=== PATIENT | female | born 1950 | race Caucasian/White ===

== ENCOUNTER 2016-10-07 14:04 | Observation (INO) ==
[2016-10-07] MEDS ORDERED: Ondansetron 4 MG/2 ML VIAL IVP ONE (15:00)
[2016-10-07] MEDS ORDERED: 0.9 % Sodium Chloride 1,000 ML IVC ONE (15:00)
--- NOTE | 2016-10-07 15:05 | Emergency Department Note ---
Disposition Clinical Impression: Lightheadedness, Loss of balance, Weakness, Pre-syncope Nausea and vomiting Qualifiers: Vomiting type: unspecified Vomiting Intractability: non-intractable Qualified Code(s): R11.2 - Nausea with vomiting, unspecified Disposition: Admitted As Inpatient Condition: Good Time of Disposition: 15:48 Weakness HPI - General Chief complaint: ED Weakness Stated complaint: Weakness/Blurred Vision Time Seen by Provider: 10/07/16 14:28 Source: patient Limitations: no limitations Nursing Notes Reviewed: Yes Vital Signs Reviewed: Yes - History of Present Illness HPI Narrative: Patient is a 66-year-old female with a history of hyperlipidemia and no prior cardiac history who complains of weakness, lightheadedness, nausea, and blurry vision after she sat down to eat lunch 2 hours ago. Patient states symptoms came on suddenly\. Symptoms persisted and so the patient was brought to the ED for evaluation after she was told by her PCP to come to the ED. Patient vomited while in her room here in the ED. Contents was patient's lunch consisted of soup. Patient states the only thing out of the ordinary that she noticed was increased urinary urgency and production of very little urine over the past 3 days. Patient denies tobacco, alcohol, illicit drug use. Pain Scale: 0 - Related Data Home Medications Medication Instructions Recorded Confirmed Acetaminophen [Tylenol] 500 mg PO Q6HR PRN 10/07/16 10/07/16 Krill/[place]-3/Dha/Epa/Lipids 1 each PO DAILY 10/07/16 10/07/16 [Krill Oil 300 mg Softgel] LORazepam [Ativan] 0.5 mg PO BID PRN 10/07/16 10/07/16 Multivitamin [Multi-Day Vitamins] 1 each PO DAILY 10/07/16 10/07/16 Multivits Min/Iron/FA/Herb#186 1 each PO DAILY 10/07/16 10/07/16 [Hair, Skin & Nails Caplet] Allergies Allergy/AdvReac Type Severity Reaction Status Date / Time levofloxacin [From Levaquin] AdvReac Hallucinati Verified 10/07/16 14:10 ng All systems ED: reviewed and negative except as stated. Review of Systems: As Per HPI Constitutional: Reports: weakness. Denies: fever Eyes: Reports: vision change ENT ED: Denies: congestion Cardiovascular: Denies: chest pain, palpitations Respiratory: Denies: cough, dyspnea, wheezes Gastrointestinal: Reports: nausea, vomiting. Denies: abdominal pain, diarrhea, hematemesis, melena, hematochezia Genitourinary: Reports: urgency, frequency. Denies: dysuria, hematuria, discharge Musculoskeletal: Denies: back pain, neck pain Integumentary: Denies: rash Neurological: Reports: weakness, abnormal gait. Denies: headache, numbness, paresthesias Psychiatric: Denies: anxiety Endocrine: Denies: fatigue Past Medical History - Past Medical History Attestation: Yes The following information was validated with the patient. Source: patient Medical history: Reports: hyperlipidemia Psychiatric history: Reports: no psych history [employer] history: Reports: no [employer] history - Social History Smoking Status: Never smoker Smokeless Tobacco Status: No Alcohol use: Reports: none Drug use: Reports: none Physical Exam - General Limitations: no limitations General appearance: alert - Head Head exam: atraumatic, normocephalic, normal inspection - Eye Eye exam: Present: normal appearance, PERRL, EOMI - ENT ENT exam: normal exam, normal oropharynx, mucous membranes moist - Neck Neck exam: Present: normal inspection, full ROM, trachea midline - Chest Chest inspection: Present: normal inspection, symmetric chest wall rise - Respiratory Respiratory exam: Present: normal lung sounds bilaterally - Abdominal Exam Abdominal exam: Present: soft, Non-Tender. Absent: tenderness, distention, guarding, rebound, rigidity - Extremities Exam Extremities exam: Present: normal inspection, full ROM, normal capillary refill. Absent: tenderness, pedal edema - Expanded Lower Extremity Exam Hip/Pelvis exam: Present: normal inspection, full ROM Upper leg exam: Present: normal inspection, full ROM Knee exam: Present: normal inspection, full ROM Lower leg exam: Present: normal inspection, full ROM Ankle exam: Present: normal inspection, full ROM Foot/toe exam: Present: normal inspection, full ROM Neurovascular/Tendon exam: Absent: motor deficit, sensory deficit, tendon deficit - Back Exam Back exam: Present: normal inspection, full ROM. Absent: tenderness, CVA tenderness (R), CVA tenderness (L) - Neurological Exam Neurological exam: Present: alert, oriented X3, CN II-XII intact, normal gait ( Patient having difficulty maintaining balance and leans to the left. She is able to stand up on her own without issue). Absent: motor sensory deficit, reflexes normal - Psychiatric Psychiatric exam: Present: normal affect, normal mood - Skin Skin exam: Present: warm, dry, intact, normal color Course - Reevaluation(s) Reevaluation #1: Patient seen and examined at bedside. Patient doing well patient complains of nausea. Zofran ordered IV, 1 L normal saline ordered urinalysis ordered and EKG ordered Time: 15:10 Reevaluation #2: Patient was reevaluated and doing well. Patient initially refused Zofran for nausea but will take it now. Patient will be able to provide urine for us now Time: 16:05 Reevaluation #3: Patient's labs and EKG showed no abnormalities. Plan is to admit patient for presyncope and observation. Patient understands and agrees to treatment and plan. Vital Signs Temperature 97.3 F L 10/07/16 14:07 Pulse Rate 71 10/07/16 14:07 Respiratory Rate 20 10/07/16 14:07 Blood Pressure 127/85 10/07/16 14:07 O2 Sat by Pulse Oximetry 99 10/07/16 14:07 Temperature 98.1 F 10/07/16 19:26 Pulse Rate 84 10/07/16 19:26 Respiratory Rate 14 10/07/16 19:26 Blood Pressure 137/85 10/07/16 19:26 O2 Sat by Pulse Oximetry 95 10/07/16 19:26 Oxygen Delivery Oxygen Delivery Room Air Weakness - [facility] Narrative Medical decision making narrative: The patient comes in with concern for presyncope, secondary to possible dysrhythmia. Patient has no previous cardiac history. No signs of vertigo. No signs or symptoms pointing to an central cause of vertigo. Neurologic exam was negative. No dysdidactokinesis. No nystagmus, provoked her unprovoked. Patient is chest pain-free, abdominal pain-free, and has no focal neurological deficits. Patient was given recommendation for admittance secondary to acute onset of symptoms leading to a presyncopal episode which require at least 24 hours observation. Patient accepts this is in to admit Patient was accepted for admission by Dr. Mitchell the hospitalist. - Lab Data Result diagrams: 10/07/16 15:21 10/07/16 15:21 Lab Results 08/10/07/16 10/07/16 Range/Units 15:19 15:21 15:21 WBC 8.0 (4.3-11.1) K/mcL RBC 4.82 (3.82-4.97) M/mcL Hgb 13.9 (11.5-15.4) g/dL Hct 42.4 (35.3-44.9) % MCV 88.0 (83.0-100.0) fL MCH 28.8 (28.0-33.3) pg MCHC 32.8 (31.6-35.5) g/dL RDW 12.7 (11.5-14.5) % Plt Count 258 (140-400) K/mcL MPV 9.8 (9.4-12.4) fL Immature Gran % 0.4 (0-4) % Seg Neutrophils % 78.7 % Lymphocytes % 14.8 % Monocytes % 5.0 % Eosinophils % 0.9 % Basophils % 0.2 % Neutrophils # 6.3 (1.6-8.9) K/mcL Lymphocytes # 1.2 (0.6-4.6) K/mcL Monocytes # 0.4 (0.0-1.3) K/mcL Eosinophils # 0.1 (0.0-0.6) K/mcL Basophils # 0.0 (0.0-0.2) K/mcL Sodium 143 (136-145) mEq/L Potassium 4.0 (3.5-4.5) mEq/L Chloride 104 (98-109) mEq/L Carbon Dioxide 29 (19-29) mEq/L BUN 15 (7-20) mg/dL Creatinine 0.72 (0.57-1.11) mg/dL Est GFR ( Amer) > 60 (> 60) Est GFR (Non-Af Amer) > 60 (> 60) BUN/Creatinine Ratio 21 (6-26) Glucose 108 H (70-99) mg/dL POC Glucose 106 H (58-89) Calculated Osmolality 297 (280-300) Calcium 9.9 (8.6-10.8) mg/dL Troponin I (0-0.03) ng/mL Urine Color (Yellow) Urine Clarity (Clear) Urine pH (5.0-8.0) pH Units Ur Specific [place] (1.010-1.025) Urine Protein (Neg-Trace) mg/dL Urine Glucose (UA) (Normal) mg/dL Urine Ketones (Negative) mg/dL Urine Blood (Negative) Urine Nitrite (Negative) Urine Bilirubin (Negative) Urine Urobilinogen (Normal) mg/dL Ur Leukocyte Esterase (Negative) Urine Microscopic RBC (0-3) per hpf Urine Microscopic WBC (0-3) per hpf Ur Squamous Epith Cells (None-Few) per lpf Urine Bacteria (None-Few) per hpf Hyaline Casts (None-Few) per lpf Ur Culture Indicated? (NO) 10/07/16 10/07/16 10/07/16 Range/Units 15:21 16:45 19:09 WBC (4.3-11.1) K/mcL RBC (3.82-4.97) M/mcL Hgb (11.5-15.4) g/dL Hct (35.3-44.9) % MCV (83.0-100.0) fL MCH (28.0-33.3) pg MCHC (31.6-35.5) g/dL RDW (11.5-14.5) % Plt Count (140-400) K/mcL MPV (9.4-12.4) fL Immature Gran % (0-4) % Seg Neutrophils % % Lymphocytes % % Monocytes % % Eosinophils % % Basophils % % Neutrophils # (1.6-8.9) K/mcL Lymphocytes # (0.6-4.6) K/mcL Monocytes # (0.0-1.3) K/mcL Eosinophils # (0.0-0.6) K/mcL Basophils # (0.0-0.2) K/mcL Sodium (136-145) mEq/L Potassium (3.5-4.5) mEq/L Chloride (98-109) mEq/L Carbon Dioxide (19-29) mEq/L BUN (7-20) mg/dL Creatinine (0.57-1.11) mg/dL Est GFR ( Amer) (> 60) Est GFR (Non-Af Amer) (> 60) BUN/Creatinine Ratio (6-26) Glucose (70-99) mg/dL POC Glucose (58-89) Calculated Osmolality (280-300) Calcium (8.6-10.8) mg/dL Troponin I 0.01 0.01 (0-0.03) ng/mL Urine Color Yellow (Yellow) Urine Clarity Clear (Clear) Urine pH 7.0 (5.0-8.0) pH Units Ur Specific [place] 1.018 (1.010-1.025) Urine Protein Negative (Neg-Trace) mg/dL Urine Glucose (UA) Normal (Normal) mg/dL Urine Ketones Negative (Negative) mg/dL Urine Blood Negative (Negative) Urine Nitrite Negative (Negative) Urine Bilirubin Negative (Negative) Urine Urobilinogen Normal (Normal) mg/dL Ur Leukocyte Esterase Small H (Negative) Urine Microscopic RBC 0-3 (0-3) per hpf Urine Microscopic WBC 3-5 H (0-3) per hpf Ur Squamous Epith Cells Many H (None-Few) per lpf Urine Bacteria None Seen (None-Few) per hpf Hyaline Casts None Seen (None-Few) per lpf Ur Culture Indicated? YES A (NO) - Radiology Data Radiology results reviewed: Yes I reviewed the patient's radiology results. Chest X-Ray 10/07/16 15:50 IMPRESSION: No acute cardiopulmonary disease D/ / Guru Prater MD / Guru Prater MD Interpreting Provider: Guru Prater MD Head CT 10/07/16 17:33 IMPRESSION: No acute intracranial abnormality. D/ / Kristen Cummings MD / Kristen Cummings MD Interpreting Provider: Kristen Cummings MD - EKG Data EKG attestation: Yes I reviewed and interpreted this EKG. EKG shows normal: sinus rhythm Rate: normal Rhythm: NSR [place]/QRS: normal When compared to previous EKG there are: previous EKG unavailable Interpretation: normal EKG
[2016-10-07 15:55] LABS: Eosinophils % 0.9 %; Hematocrit 42.4 % (35.3-44.9); Hemoglobin 13.9 g/dL (11.5-15.4); Immature Granulocytes % 0.4 % (0-4); Lymphocytes % 14.8 %; Mean Corpuscular HGB Conc 32.8 g/dL (31.6-35.5); Mean Corpuscular Hemoglobin 28.8 pg (28.0-33.3); Mean Platelet Volume 9.8 fL (9.4-12.4); Platelet Count 258 K/mcL (140-400); Red Blood Count 4.82 M/mcL (3.82-4.97); Red Cell Distribution Width 12.7 % (11.5-14.5); Segmented Neutrophils % 78.7 %
[2016-10-07 15:56] LABS: Basophils % 0.2 %; Eosinophils # 0.1 K/mcL (0.0-0.6); Lymphocytes # 1.2 K/mcL (0.6-4.6); Monocytes # 0.4 K/mcL (0.0-1.3); Neutrophils # 6.3 K/mcL (1.6-8.9)
--- NOTE | 2016-10-07 16:02 | Emergency Department Note ---
START Narrative - START START: I examined this patient and my medical decision-making was reviewed with the Resident Physician. I agree with the documented findings, disposition and treatment plan as described except to the extent set forth below. Near syncope, age 66, normal EKG, no h/o heart disease. Admit for obs d/t age.
[2016-10-07 16:07] LABS: BUN/Creatinine Ratio 21 (6-26); Blood Urea Nitrogen 15 mg/dL (7-20); Calcium 9.9 mg/dL (8.6-10.8); Carbon Dioxide 29 mEq/L (19-29); Chloride 104 mEq/L (98-109); Glucose 108 mg/dL (70-99); Osmolality,Calculated 297 (280-300); Sodium 143 mEq/L (136-145); eGFR For African Americans > 60 (> 60); eGFR For Non-African Americans > 60 (> 60)
[2016-10-07 16:53] LABS: Bilirubin,Urine Negative (Negative); Blood,Urine Negative (Negative); Clarity,Urine Clear (Clear); Color,Urine Yellow (Yellow); Glucose,Urine (UA) Normal (Normal); Ketones,Urine Negative (Negative); Leukocyte Esterase,Urine Small (Negative); Nitrite,Urine Negative (Negative); Protein,Urine Negative (Neg-Trace); Specific Gravity,Urine 1.018 (1.010-1.025); Urobilinogen,Urine Normal (Normal)
[2016-10-07 16:54] LABS: Bacteria,Urine None Seen per hpf (None-Few); Hyaline Casts,Urine None Seen per lpf (None-Few); RBC,Urine 0-3 per hpf (0-3); Squamous Epithelial Cell,Urine Many per lpf (None-Few)
[2016-10-07] MEDS ORDERED: *HR* LORazepam 0.5 MG TABLET PO PRN (17:12)
[2016-10-07] MEDS ORDERED: Naloxone 0.4 MG/ML INJ IVP PRN ×2 (17:18→17:21)
--- NOTE | 2016-10-07 17:30 | Internal Med History&Physical ---
<Nilton Agustin J - Last Filed: 10/07/16 18:01> Date of Encounter: 10/07/16 Time of Encounter: 17:23 Assessment and Plan (1) Pre-syncope Current visit: Yes Status: Acute Patient reports having a presyncopal event this afternoon while eating lunch with friends. She alleges a similar experience in May of 2016. CBC, CMP, troponin unremarkable. Workup to rule out cardiogenic versus neurogenic. CT of head without contrast Echocardiogram Bilateral carotid Doppler Continuous telemetry Continuous SPO2 Oxygen therapy titrate O2 to maintain spo2 greater than 92% CAM P, mag, phosphorus, CBC, TSH in a.m. continue to trend troponins [place] precautions Orthostatic vital sign Neuro check every shift (2) Loss of balance Current visit: Yes Status: Acute Acute loss of balance accompanied with near syncopal event. Has since subsided since admission to [facility]. CT of head without contrast Echocardiogram Bilateral carotid Doppler Continuous telemetry Continuous SPO2 Oxygen therapy titrate O2 to maintain spo2 greater than 92% CAM P, mag, phosphorus, CBC, TSH in a.m. continue to trend troponins [place] precautions Orthostatic vital sign Neuro check every shift (3) Weakness Current visit: Yes Status: Acute Patient complained of transient weakness surrounding near syncopal event. However, at this time she denies any weakness. Continue to workup to rule out cardiogenic versus neurogenic causes (4) DVT prophylaxis Current visit: Yes Status: Acute Patient is a risk for DVT due to Hospital stay. start Lovenox subcutaneous 40 mg daily Internal Medicine - H&P: HPI Chief complaint: NEAR SYNCOPE Admitted From: Home Plans for Post Hospital Care: Home History of present illness: Ms. Wisdom is a 66 year old female with only known past medical history of hyperlipidemia, and anxiety. She presents today with chief complaint of a near syncopal event. All information obtained from chart review and patient report. She reports that she was having lunch with a friend and while looking across the table she began to feel lightheaded and noticed she was having vision changes to which she describes as blurred vision. She then informed her friend that they needed to leave because she did not feel well and as she began to stand she became near syncopal and noticed severe weakness and balance difficulties. The patient admits to eating a some potatoe soup that tasted weird to her and she is concerned of the possibility of food poisoning. While in the emergency department she was feeling nauseous and vomited. Lab work in the ED was unremarkable. Patient denies any fever, recent illnesses, palpitations, chest pain, difficulty breathing, headache,. She admits to lightheadedness, dizziness, blurred vision. She admits to chills and sweats throughout the near syncopal event but has since subsided. She is being admitted to [facility] for further workup and evaluation. Past Med Surg Social Fam HX - Past Medical History Medical history: hyperlipidemia Psychiatric history: no psych history - Social History Smoking Status: Never smoker Smokeless Tobacco Status: No Alcohol use: none Drug use: none - Family History Father Brother Hx Family Cardiac Disorders: Yes Mother Living Status: Cause of : Cancer Hx Family Cancer: Yes Internal Medicine - H&P: Meds Acetaminophen [Tylenol] 500 mg PO Q6HR PRN 10/07/16 [History] Krill/[place]-3/Dha/Epa/Lipids [Krill Oil 300 mg Softgel] 1 each PO DAILY [History] LORazepam [Ativan] 0.5 mg PO BID PRN 10/07/16 [History] Multivitamin [Multi-Day Vitamins] 1 each PO DAILY 10/07/16 [History] Multivits Min/Iron/FA/Herb#186 [Hair, Skin & Nails Caplet] 1 each PO DAILY 10/07 [History] 3 Allergy/AdvReac Type Severity Reaction Status Date / Time levofloxacin [From Levaquin] AdvReac Hallucinati Verified 10/07/16 14:10 ng All Systems PM: A 10-system review of systems was performed and is negative for pertinent findings except as documented above in the HPI. - Constitutional Constitutional: fatigue, weakness, no chills, no fever(s), no night sweats - EENT Eyes: blurry vision (Changes in vision lasting only throughout near syncopal event, denies any current changes in vision as of this review of systems), no change in vision, no discharge, no loss of peripheral vision, no loss of vision , no pain, no photophobia, no tunnel vision Ears: no ear discharge, no ear pain, no tinnitus Nose, mouth and throat: no dysphagia, no nasal discharge, no neck pain, no sore throat - Cardiovascular Cardiovascular ROS IM: lightheadedness (Lightheadedness which began over lunch today only lasting. Near syncopal event), no chest pain, no diaphoresis, no dyspnea, no dyspnea on exertion, no edema, no palpitations, no syncope - Respiratory Respiratory: no cough, no dyspnea, no dyspnea on exertion, no wheezing, no excessive phlegm production - Gastrointestinal Gastrointestinal: no abdominal pain, no diarrhea, no hematemesis, no hematochezia, no melena, no nausea, no vomiting - Genitourinary Genitourinary: no change in urinary stream, no dysuria, no flank pain, no hematuria - Musculoskeletal Musculoskeletal ROS IM: no numbness, no tingling - Integumentary Integumentary IM: no rash, no unusual bruising - Neurological Neurological ROS: vertigo, weakness, no abnormal gait, no confusion, no convulsions, no dizziness, no focal weakness, no frequent falls, no headache(s) , no numbness, no tingling, no tremor(s) - Psychiatric Psychiatric: no confusion, no difficulty concentrating, no memory loss - Hematologic/Lymphatic Hematologic/Lymphatic: no easy bruising - Constitutional Vitals: Temp Pulse Resp BP Pulse Ox 97.3 F L 81 18 143/77 100 10/07/16 14:07 10/07/16 16:12 10/07/16 16:39 10/07/16 16:39 10/07/16 16:12 General appearance: Present: cooperative, A&O X 3, no acute distress, obese - Head Head exam: Present: atraumatic, normocephalic - Eye Eye exam: Present: PERRL, conjuntiva pink, sclera anicteric Pupils: Present: PERRL - Neck Neck exam general surgery: Present: supple, trachea midline. Absent: lymphadenopathy - Respiratory Respiratory exam: Present: CTAB. Absent: accessory muscle use, rales, rhonchi, wheezes - Cardiovascular Cardiovascular exam: Present: RRR, +S1, +S2. Absent: diastolic murmur, gallop, rubs, systolic murmur - GI/Abdominal GI/Abdominal exam: Present: normal bowel sounds, soft, no peritoneal signs. Absent: distended, tenderness - Extremities Exam Extremities exam: Present: warm, radial pulses palpable and symmetrical. Absent : calf tenderness, cyanotic, pedal edema - Neurological Exam Neurological exam: Present: CN II-XII intact, oriented X3, no focal deficits. Absent: pronater drift, facial droop, speech deficit - Skin Skin exam: Present: dry, intact Internal Med - H&P Results - Labs CBC & Chem 7: 10/07/16 15:21 10/07/16 15:21 Labs: Urine 10/07/16 Range/Units 16:45 Urine Color Yellow (Yellow) Urine Clarity Clear (Clear) Urine pH 7.0 (5.0-8.0) pH Units Ur Specific [place] 1.018 (1.010-1.025) Urine Protein Negative (Neg-Trace) mg/dL Urine Glucose (UA) Normal (Normal) mg/dL <Lynn Mitchell - Last Filed: 10/07/16 18:26> Date of Encounter: 10/07/16 Time of Encounter: 18:00 Internal Medicine - H&P: HPI History of present illness: Ms. Wisdom is a 66 year old female All Systems PM: A 10-system review of systems was performed and is negative for pertinent findings except as documented above in the HPI. - Constitutional Vitals: Temp Pulse Resp BP Pulse Ox 97.3 F L 81 18 143/77 100 10/07/16 14:07 10/07/16 16:12 10/07/16 16:39 10/07/16 16:39 10/07/16 16:12 Internal Med - H&P Results - Labs CBC & Chem 7: 10/07/16 15:21 10/07/16 15:21 Labs: Urine 10/07/16 Range/Units 16:45 Urine Color Yellow (Yellow) Urine Clarity Clear (Clear) Urine pH 7.0 (5.0-8.0) pH Units Ur Specific [place] 1.018 (1.010-1.025) Urine Protein Negative (Neg-Trace) mg/dL Urine Glucose (UA) Normal (Normal) mg/dL - Attending Attestation Pt independently seen and examined. Admitted for presyncope. Will rule out neurogenic vs. cardiogenic cause. Case discussed with CAMERON Agustin. I agree with his documented findings, assessment, and plan.
[2016-10-08 01:09] LABS: Basophils % 0.2 %; Eosinophils # 0.1 K/mcL (0.0-0.6); Eosinophils % 0.6 %; Hematocrit 38.7 % (35.3-44.9); Hemoglobin 13.2 g/dL (11.5-15.4); Immature Granulocytes % 0.3 % (0-4); Lymphocytes # 1.6 K/mcL (0.6-4.6); Lymphocytes % 17.8 %; Mean Corpuscular HGB Conc 34.1 g/dL (31.6-35.5); Mean Corpuscular Hemoglobin 30.2 pg (28.0-33.3); Mean Corpuscular Volume 88.6 fL (83.0-100.0); Mean Platelet Volume 9.9 fL (9.4-12.4); Monocytes # 0.7 K/mcL (0.0-1.3); Monocytes % 7.6 %; Neutrophils # 6.5 K/mcL (1.6-8.9); Platelet Count 232 K/mcL (140-400); Red Blood Count 4.37 M/mcL (3.82-4.97); Red Cell Distribution Width 12.9 % (11.5-14.5); Segmented Neutrophils % 73.5 %
[2016-10-08 01:30] LABS: Alanine Aminotransferase 21 Units/L (0-55); Albumin 3.6 g/dL (3.5-5.0); Albumin/Globulin Ratio 1.5 (1.1-2.2); Alkaline Phosphatase 79 Units/L (38-126); Aspartate Amino Transferase 23 Units/L (5-34); BUN/Creatinine Ratio 17 (6-26); Bilirubin,Total 0.3 mg/dL (0.2-1.2); Blood Urea Nitrogen 12 mg/dL (7-20); Calcium 9.1 mg/dL (8.6-10.8); Carbon Dioxide 25 mEq/L (19-29); Chloride 107 mEq/L (98-109); Chol/HDL Ratio 5.4 (0-4.9); Cholesterol 270 mg/dL (< 200); Globulin 2.4 g/dL (2.4-3.5); Glucose 106 mg/dL (70-99); HDL Cholesterol 50 mg/dL (40-59); LDL Cholesterol,Calculated 185 mg/dL (0-99); Osmolality,Calculated 290 (280-300); Phosphorous 3.8 mg/dL (2.3-4.7); Sodium 140 mEq/L (136-145); Triglycerides 173 mg/dL (< 150); eGFR For African Americans > 60 (> 60); eGFR For Non-African Americans > 60 (> 60)
[2016-10-08 01:47] LABS: Thyroid Stimulating Hormone 0.842 mcIU/mL (0.350-4.840)
--- NOTE | 2016-10-08 06:29 | Electrocardiograph Report ---
[facility] [employer] [facility] Test Date: 2016-10-07 Pat Name: Thania Wisdom Department: 0 Room: 3B46 Gender: F Entry Level Sales Representative: Ekp : 1950 Requested By: Edvin Arboleda Order Number: [id number] Reading MD: Abe Estrada MD Measurements Intervals [place] Rate: 81 P: 52 [place]: 183 QRS: -25 QRSD: 90 T: 65 QT: 407 QTc: 445 Interpretive Statements SINUS RHYTHM LEFT AXIS DEVIATION Electronically Signed On 10-08-2016 6:28:16 EDT by Abe Estrada MD
[2016-10-08] MEDS ORDERED: *HR* Enoxaparin 40 MG/0.4 ML SYRINGE SQ SCH (07:00)
[2016-10-08] MEDS ORDERED: EPA PO SCH (09:00)
[2016-10-08] MEDS ORDERED: KRILL PO SCH (09:00)
[2016-10-08] MEDS ORDERED: MULTIVITS MIN PO SCH (09:00)
[2016-10-08] MEDS ORDERED: LIPIDS PO SCH (09:00)
[2016-10-08] MEDS ORDERED: [UNRECOGNIZED DRUG - OTHER] PO SCH (09:00)
[2016-10-08] MEDS ORDERED: HERB PO SCH (09:00)
[2016-10-08] MEDS ORDERED: OMEGA PO SCH (09:00)
[2016-10-08] MEDS ORDERED: DHA PO SCH (09:00)
[2016-10-08] MEDS ORDERED: IRON PO SCH (09:00)
[2016-10-08] MEDS ORDERED: Multivit/Ca/Min/Fe/FA 1 TAB TABLET PO SCH (09:00)
--- NOTE | 2016-10-08 11:24 | Discharge Summary ---
Date of Encounter: 10/08/16 Time of Encounter: 09:30 - Discharge Diagnosis (1) Pre-syncope Priority: Primary Status: Resolved Comments: Unclear causation. Patient readily admits to never drinking water. Abnormal urinalysis however suspect contamination. Chest x-ray negative. Head CT negative. Carotid ultrasound negative. Echocardiogram unremarkable with ejection fraction of 65% and mild diastolic dysfunction-patient euvolemic on examination on day of discharge. She denied shortness of breath throughout this admission. Recommend close outpatient follow-up. (2) Lightheadedness Priority: Primary Status: Resolved (3) Loss of balance Priority: Primary Status: Resolved Comments: ambulatory about the unit and her room without difficulty. (4) Weakness Priority: Primary Status: Resolved (5) UTI (urinary tract infection) Priority: Primary Status: Suspected Comments: Urinalysis consistent with contamination and the patient is asymptomatic and denies history of UTIs. Will call her tomorrow if UCx is abnormal. Qualifiers: Urinary tract infection type: site unspecified Hematuria presence: without hematuria Qualified Code(s): N39.0 - Urinary tract infection, site not specified (6) DVT prophylaxis Priority: Primary Status: Acute Comments: Subcutaneous Lovenox while admitted - Discharge Medications Home Medications: Acetaminophen [Tylenol] 500 mg PO Q6HR PRN 10/07/16 [History] Krill/[place]-3/Dha/Epa/Lipids [Krill Oil 300 mg Softgel] 1 each PO DAILY [History] LORazepam [Ativan] 0.5 mg PO BID PRN 10/07/16 [History] Multivitamin [Multi-Day Vitamins] 1 each PO DAILY 10/07/16 [History] Multivits Min/Iron/FA/Herb#186 [Hair, Skin and Nails Caplet] 1 each PO DAILY [History] Allergies/Adverse Reactions: 3 Allergy/AdvReac Type Severity Reaction Status Date / Time levofloxacin [From Levaquin] AdvReac Hallucinati Verified 10/07/16 14:10 ng Procedures/tests Complete & Pending: Procedures Performed prior 72 hours Category Date Time Status CT head/brain wo con [CT] Stat Cat Scan 10/07/16 17:33 Completed EV carotid duplex imaging BI Routine Y 10/07/16 17:33 Completed EV echocardiogram Routine Y 10/07/16 17:33 Completed Date of admission: 10/07/16 16:14 Primary care physician: Braden Mcclain MD Discharging clinician: Chana Hendrickson Anticipated date of discharge: 10/08/16 - Patient Status Disposition: Home, Self-Care Condition: Good Functional capacity at discharge: independent ambulation Overall status at discharge: patient is back to baseline - Discharge Instructions Follow Up With: Braden Mcclain MD [Primary Care Provider] - Additional Instructions: Follow-up with primary care provider within one to 2 weeks - Diet and Activity Activity: increase activity as tolerated Diet: low fat, low cholesterol Hospital course: Ms. Wisdom is a 66 year old female with past medical history of hyperlipidemia and anxiety. She presented to the emergency department with a chief complaint of near syncopal event. Patient stating she was out having a lunch with a friend when she started to have lightheadedness associated with vision changes described as blurred vision. She then told her friend that they needed to leave because she was not feeling well when she stood up, she had a near syncopal event and noticed severe weakness and balance difficulties. While in the emergency department, patient had an episode of nausea and vomited once. Workup in the emergency department unremarkable. Chest x-ray negative. Head CT negative. Patient was admitted to the hospitalist service for further evaluation and management. Patient was admitted and observed overnight and remained asymptomatic. She denied lightheadedness, dizziness, vision changes while admitted. She was also ambulatory around her room and around the unit without difficulty. Abnormal urinalysis noted-likely consistent with contamination-patient asymptomatic and denies dysuria. She will be called tomorrow if antibiotics are indicated. Echocardiogram unremarkable with ejection fraction of 65% and mild diastolic dysfunction. Patient euvolemic on examination on discharge. No focal neurological weakness is present on examination. Carotid ultrasound unremarkable. Unclear etiology however the patient stated that she "never drinks water" this could have contributed to her episode. Patient stating she had a similar episode [place] which she again attributed to not drinking enough water in the heat. She was discharged home in stable condition with close outpatient follow-up recommended. ITS Impressions Chest X-Ray 10/07/16 15:50 IMPRESSION: No acute cardiopulmonary disease D/ / Guru Prater MD / Guru Prater MD Interpreting Provider: Guru Prater MD Head CT 10/07/16 17:33 IMPRESSION: No acute intracranial abnormality. D/ / Kristen Cummings MD / Kristen Cummings MD Interpreting Provider: Kristen Cummings MD Echocardiogram Date of Study: 10/07/2016 Impressions: LVEF 65%. Normal left ventricular size and systolic function. There is evidence of mild diastolic dysfunction of the left ventricle. Normal right ventricular size and function. No significant valvular dysfunction. No pulmonary hypertension. Aortic root and ascending aorta are not well visualized. 10/07/16 20:54 - Vascular Preliminary by Olesya Mccray Acct Num: [id number] : 1950 Patient Age: 66 Carotid Bilateral; Normal carotid bilaterally - Time Spent with Patient Total time spent providing and/or coordinating discharge services: - Constitutional Vitals: Temp Pulse Resp BP Pulse Ox 98.3 F 72 15 113/72 96 10/08/16 06:58 10/08/16 06:58 10/08/16 06:58 10/08/16 06:58 10/08/16 06:58 General appearance: Present: cooperative, A&O X 3, pleasant, no acute distress, obese, answers questions appropriately - Head Head exam: Present: atraumatic, normocephalic - Eye Eye exam: Present: PERRL, conjuntiva pink, sclera anicteric Pupils: Present: PERRL - Neck Neck exam general surgery: Present: supple, trachea midline. Absent: lymphadenopathy - Respiratory Respiratory exam: Present: CTAB. Absent: accessory muscle use, rales, respiratory distress, rhonchi, wheezes - Cardiovascular Cardiovascular exam: Present: RRR, +S1, +S2. Absent: diastolic murmur, gallop, rubs, systolic murmur - GI/Abdominal GI/Abdominal exam: Present: normal bowel sounds, soft, no peritoneal signs. Absent: distended, tenderness - Extremities Exam Extremities exam: Present: warm, radial pulses palpable and symmetrical. Absent : calf tenderness, cyanotic, pedal edema - Neurological Exam Neurological exam: Present: alert, CN II-XII intact, normal gait, oriented X3, no focal deficits, strengths equal and symetr throughout. Absent: pronater drift, facial droop, speech deficit - Skin Skin exam: Present: dry, intact, normal color, warm
[2016-10-08 11:45] VITALS: BP 119/78
--- NOTE | 2016-10-11 08:05 | Carotid Imaging Report ---
Carotid Duplex Patient Name:Thania Wisdom Order Number:[id number] Procedure Date:10/07/2016 Date:9Age:66 yrs Gender:Female Rt.BP:137 / 85 mmHgHeart Rate: Location:[facility] Room #: [id number] Lodging House Keeper:Olesya Mccray, QUANG Referring MD:Nilton Agustin CNP residential roofer:Braden Mcclain MD Reading MD:Braden Ybarra MD Primary Indications:Syncope and collapse Impressions: Findings: Bilateral carotid system is essentially normal. Findings Carotid Duplex: Right: The right proximal common carotid artery has a PSV of 127 cm/s and a EDV of 16 cm/s. The right mid common carotid artery has a PSV of 106 cm/s and a EDV of 24 cm/s. The right distal common carotid artery has a PSV of 94 cm/s and a EDV of 24 cm/s. The right bifurcation has a PSV of 81 cm/s and a EDV of 17 cm/s. The right proximal internal carotid artery has a PSV of 90 cm/s and a EDV of 32 cm/s. The right mid internal carotid artery has a PSV of 116 cm/s and a EDV of 42 cm/s. The right distal internal carotid artery has a PSV of 60 cm/s and a EDV of 18 cm/s. The right eca has a PSV of 101 cm/s and a EDV of 16 cm/s. The right vertebral artery has a PSV of 45 cm/s and a EDV of 12 cm/s. Left: The left proximal common carotid artery has a PSV of 115 cm/s and a EDV of 19 cm/s. The left mid common carotid artery has a PSV of 100 cm/s and a EDV of 26 cm/s. The left distal common carotid artery has a PSV of 120 cm/s and a EDV of 25 cm/s. The left bifurcation has a PSV of 89 cm/s and a EDV of 21 cm/s. The left proximal internal carotid artery has a PSV of 89 cm/s and a EDV of 22 cm/s. The left mid internal carotid artery has a PSV of 105 cm/s and a EDV of 36 cm/s. The left distal internal carotid artery has a PSV of 120 cm/s and a EDV of 35 cm/s. The left eca has a PSV of 103 cm/s and a EDV of 19 cm/s. The left vertebral artery has a PSV of 74 cm/s and a EDV of 25 cm/s. Prior Study: No prior study available for comparison. Carotid Results Right PSV EDV Assessment Proximal CCA 127 16 Mid CCA 106 24 Distal CCA 94 24 Bifurcation 81 17 Proximal ICA 90 32 Mid ICA 116 42 Distal ICA 60 18 ECA 101 16 Vertebral Artery 45 12 Antegrade Flow Left PSV EDV Assessment Proximal CCA 115 19 Mid CCA 100 26 Distal CCA 120 25 Bifurcation 89 21 Proximal ICA 89 22 Mid ICA 105 36 Distal ICA 120 35 ECA 103 19 Vertebral Artery 74 25 Antegrade Flow Ratio's Right ICA/CCA Ratio: 1.09 ICA/CCA Values: 116/106 Left ICA/CCA Ratio: 1.20 ICA/CCA Values: 120/100 Updated by Braden Ybarra MD on 10/09/2016 8:47:01 AM electronically signed on 10/09/2016 8:47:25 AM with status of Final
== END 2016-10-08 14:05 | disposition home or self-care (01) ==
LOC: 3BNU 14:04 → EMEROO 14:04 → 3BNU 16:49
PROVIDERS: ADMIT Internal Medicine; ATTEND Nurse Practitioner Family